=== PATIENT | male | born 1990 | race American Indian/Alaskan Native ===

== ENCOUNTER 2017-12-23 09:36 | Emergency (ER) | payer OTHER ==
[2017-12-23 09:43] VITALS: BP 128/67
[2017-12-23] MEDS ORDERED: NORCO 5/325 PO ONE (11:50)
--- NOTE | 2017-12-23 11:52 | Emergency Department Report ---
Apple Doc - Documentation Documentation: Patient is a 27-year-old Palestinian male who works in construction who hit his head on a metal beam approximately 3 days ago. Patient senses had a headache 7/ 10 severity with dizziness and blurred vision. Patient has not been seen for this injury as of yet. There was no loss of consciousness. Patient will have a head CT to rule out brain contusion. Patient most likely is exhibiting postconcussive syndrome.
--- NOTE | 2017-12-23 12:32 | Cat Scan Report ---
CT HEAD WITHOUT CONTRAST: HISTORY: Headache, head injury. TECHNIQUE: Sequential 2.5mm CT images. COMPARISON: none. FINDINGS: Cerebral Parenchyma: Within normal limits. Cerebellum: Within normal limits. Brainstem: Within normal limits. Ventricles: Normal. Sella: Normal. Extra-axial spaces: Normal. Basal Cisterns: Normal. Intracranial Hemorrhage: None. Midline Shift: None. Calvarium: Normal. Sinuses: Normal. Mastoid Air Cells: Normal. Visualized Orbits: Normal. IMPRESSION: Cranial CT scan within normal limits.
--- NOTE | 2017-12-23 12:45 | Emergency Department Report ---
Head Injury w/o Laceration - [facility] Chief Complaint: Head Injury Stated Complaint: BLURRY VISION Time Seen by Provider: 12/23/17 11:47 Mechanism: Direct Blow Location: Frontal Severity: severe (8/10 and throbbing in) Head Inj w/o Lac: Yes Blurred Vision (on-and-off), Yes Headache (frontally and throbbing), Yes Swelling (he had an better), Yes Bruising (resolved), Yes Break in Skin (abrasion to skin, forehead), No Loss of Consciousness (denies), No Nausea, No Altered Mental Status, No Focal Deficit, No Bleeding Other History: Patient reports that he has blurred vision since last week. He states that he hit his head while he was at work out of town last week and ever since he is been dizzy and had blurred vision. Denies any loss of consciousness. Denies any fever or chills. Denies any neck pain or stiffness. Pain is located frontally and reported that he has some bruising that's getting better and he is an abrasion to his forehead is also getting better. He says his tetanus shot is up-to-date and did not seek any medical attention when incident happened. Patient was here in 2016 with complaint of seizure loss of consciousness due to head injury and said he had seizure times one 6 months prior. He was seen by Dr. Cervantes and was diagnosed with recurrent seizure and was referred to Dr. Sanju Robles was a neurologist. Pain today is 8 out of 10 throbbing and located frontally. He said incident happened when he was going up a 10 foot ladder and he bumped the front of his head on the ladder but did not fall off the ladder. He said he had some pain medication at home which he took but it did not help. He did not follow-up with neurology. ED General PMH - Past Medical History General Medical History: other (seizure disorder, concussion from previous head injury) Surgical History: no surgical history LMP (females 10-50): other (not applicable) - Family History Significant Family History: diabetes, hypertension - Social History Smoking Status: Never Smoker Alcohol Use: rarely Drug Use: N (SHX:single and lives with family) ED Neuro ROS - Review of Systems Constitutional: no symptoms reported Eyes (ROS): blurred vision, previous injury. denies: blindness, drainage, foreign body sensation, photophobia, contact lenses, glasses Ears, Nose, Mouth, Throat: no symptoms reported Respiratory: no symptoms reported Gastrointestinal/Abdominal: no symptoms reported Musculoskeletal: no symptoms reported Skin: other (abrasion and bruising forehead) Neurological: headache. denies: emotional problems, cognitive dysfunction, numbness, petit mal seizures, tingling, tonic-clonic seizures, unable to move lower ext, unable to move upper ext, weakness Hematologic/Lymphatic: no symptoms reported Head Injury W/O Lac Exam - Exam General: Vital signs noted. No distress. Alert and acting appropriately. This is a 27-year-old male well-nourished well-developed in no acute distress. Adult Head Front + Back: 1 - Patient with minor abrasion and tenderness palpated to mid forehead. Ears are healing and he says his tetanus vaccine is up-to-date Head: Yes Pupils are PERRL (no subconjunctival hemorrhage, conjunctiva and sclera normal), Yes Abrasion (mid forehead that is already healing), No Hemotympanum, No Hematoma/Ecchymosis, No Epistaxis, No Stepoff/Deformity, No Laceration Chest, Abd, & Ext: Yes Clear Lung Sounds (clear to Clear to auscultation bilaterally, no wheezes or rales), Yes Chest Injury/Pain (no chest wall tenderness. No crepitus), Yes Regular Heart Rhythm (regular rate and rhythm.), No Neck Pain (no C-spine tenderness, full range of motion, supple), No Heart Murmur, No Abdominal Tenderness (nontender the palpation in all quadrants, normal bowel sounds in all quadrants), No Back Tenderness (no vertebral or paraspinal tenderness, full range of motion and normal inspection), No Extremity Injury (i think, cyanosis or edema. Positive pulses in all extremities and no neurovascular compromise) Neuroligical (Head Inj W/O Lac: Yes Normal Speech, Yes Normal Gait, No Lethargy , No Disorientation (alert and oriented 3. GCS is 15. Speech is clear and fluent), No Focal Weakness ED Disposition Clinical Impression: H/O concussion, Dizziness Minor head injury without loss of consciousness Qualifiers: Encounter type: initial encounter Qualified Code(s): S09.90XA - Unspecified injury of head, initial encounter Post-traumatic headache Qualifiers: Headache chronicity pattern: acute headache Intractability: not intractable Qualified Code(s): G44.319 - Acute post-traumatic headache, not intractable Disposition: DC-01 TO HOME OR SELFCARE Is pt being admited?: No Does the pt Need Aspirin: No Condition: Stable Instructions: Dizziness (ED), Acute Headache (ED), Blurred Vision (ED), Minor Head Injury (ED), Abrasion (ED) Additional Instructions: Please follow up with Dr. Paradise Zuniga as previously referred. Take medication as prescribed Please read discharge instruction and minor head injury and if he experiences any following symptoms to return to the emergency room [facility] Prescriptions: Ibuprofen [Motrin] 600 mg PO Q8H PRN #12 tablet PRN Reason: Pain Referrals: PRIMARY CAREMD [Primary Care Provider] - 12/24/17 BRIGETTE ROMEO MD [Staff Physician] - 12/24/17 [facility] [Outside] - 12/24/17 Forms: Work/School Release Form(ED) ED Medical Decision Making - Radiology Data Radiology results: report reviewed CT scan of the head and brain without contrast revealed no acute intracranial processes - Medical Decision Making ED Course: Patient status post head injury approximately 1 week ago and now following up. He reports blurred vision and dizziness. Physical findings were intact neurological system. Neck and back exam is normal. Patient with minor abrasion to forehead which is healing and his tetanus vaccine is up-to-date. Patient reported that he had previous concussion and also had episode of seizure in the past. He was seen in 2016 at this hospital and was diagnosed with recurrent seizure. He was referred to confucianism which she did not follow- up. The CT scan of the head and brain today without contrast which shows no acute intracranial findings. Patient screened by dr Gardner and was given [place] 5 /325mg 1 po for GUTIERREZ. He voiced relief of pain. I discussed the patient diagnosis CT scan result and that he needs to follow-up with neurologist as was previously referred and also ophthalmology. He voiced understanding. Patient discharged home with prescription for Motrin. Status post minor head injury with small abrasion that started healing. - Differential Diagnosis traumatic brain injury, brain hem minor head injury, posttraumatic headache ED Course Vital Signs 12/23/17 12/23/17 09:40 11:56 Temperature 98 F Pulse Rate 65 Respiratory 18 18 Rate Blood Pressure 128/67 O2 Sat by Pulse 100 Oximetry - Reevaluation(s) Reevaluation #1: 12/23/17 13:33 Patient was screened by Dr. Fili Gardner and orders noted. Patient stable throughout ED course. No change in neurological status while in the emergency room from baseline. He was given 5/325 one tablet emergency room before headache which relieved his headache.
== END 2017-12-23 17:02 | disposition home or self-care (01) ==
LOC: ED 09:36
DX: S09.90XA Unspecified injury of head, initial encounter (principal); G44.319 Acute post-traumatic headache, not intractable; G40.909 Epilepsy, unspecified, not intractable, without status epilepticus; W22.8XXA Striking against or struck by other objects, initial encounter; Y93.89 Activity, other specified; Y92.89 Other specified places as the place of occurrence of the external cause; Y99.8 Other external cause status
CPT/HCPCS: 70450; 99283